=== PATIENT | female | born 1980 | race Caucasian/White ===

== ENCOUNTER 2025-01-16 06:17 | Day surgery (SDC) | payer OTHER ==
[2025-01-13 15:34] LABS: Absolute Basophils 0.1 K/uL (0-0.5); Absolute Eosinophils 0.1 K/uL (0-0.5); Absolute Lymphocytes (CBC) 1.5 K/uL (0.7-4.9); Absolute Monocytes 0.6 K/uL (0.1-1.3); Absolute Neutrophil 5.6 K/uL (1.8-8.0); Basophils % 0.9 % (0-1.3); Eosinophils % 1.8 % (0-4.4); Hematocrit 38.9 % (36.0-45.0); Hemoglobin 13.1 g/dL (12.0-15.0); Lymphocytes % 19.5 % (15.3-44.8); MCH 30.2 pg (27.0-35.0); MCHC 33.6 g/dL (32.0-36.0); MCV 89.6 fL (80-100); MPV 7.8 fL (7.6-11.3); Neutrophils % 70.8 % (41.7-73.7); Platelets 291 thou/uL (152-406); RBC Red Blood Cell Count 4.34 M/uL (3.86-4.86); Red Cell Distribution Width 14.4 % (12.1-15.2)
[2025-01-13 15:35] LABS: Specific Gravity 1.014 (1.005-1.030); Sqamous Epithelial <5 /HPF (None Seen); Urine Bacteria None Seen /HPF (<20); Urine Bilirubin NEGATIVE (Negative); Urine Blood Negative (Negative); Urine Clarity Clear (Clear); Urine Color Light-Yellow (Yellow); Urine Crystals Unidentified Few /HPF (None Seen); Urine Glucose NEGATIVE (Negative); Urine Ketones NEGATIVE (Negative); Urine Micro Reflex YN NO BILL MICROSCOPIC; Urine Mucus Slight /HPF (None Seen); Urine Nitrite NEGATIVE (Negative); Urine Protein NEGATIVE (Negative); Urine RBC <5 /HPF (None Seen); Urine Urobilinogen Normal (Normal); Urine WBC <5 /HPF (<5)
[2025-01-16] MEDS: SCOPOLAMINE HYDROBROMIDE PATCH TD ONE (06:35)
[2025-01-16] MEDS ORDERED: ONDANSETRON 4 MG/2 ML VIAL ONE (06:41)
[2025-01-16] MEDS ORDERED: dexAMETHasone 10 MG/ML VIAL ONE (06:41)
[2025-01-16] MEDS ORDERED: ROCURONIUM 50 MG/5 ML VIAL IV ONE (06:41)
[2025-01-16] MEDS ORDERED: LIDOCAINE 1% MPF 5 ML VIAL ONE (06:41)
[2025-01-16] MEDS ORDERED: FENTANYL CITR 250 MCG/5 ML ONE (06:42)
[2025-01-16] MEDS ORDERED: propofoL 200 MG/20 ML VIAL IV ONE (06:42)
[2025-01-16] MEDS ORDERED: MIDAZOLAM HCL 2 MG/2 ML INJ ONE (06:42)
[2025-01-16] MEDS ORDERED: KETAMINE HCL IN 0.9 % NACL 50 MG/5 ML SYRINGE IV ONE (06:42)
[2025-01-16] MEDS: Ringers Lactate 1,000 ML IV ONE ×2 (07:10→09:30)
[2025-01-16] MEDS: CEFAZOLIN SODIUM 2 GM/VIAL ONE (07:35)
[2025-01-16] MEDS ORDERED: GLYCOPYRROLATE 0.2 MG/ML SYR ONE (07:46)
[2025-01-16] MEDS: BUPIVACAINE 0.25% PF 30 ML VIAL ONE (07:51)
[2025-01-16] MEDS ORDERED: KETOROLAC 30 MG/ML INJ ONE (09:31)
[2025-01-16] MEDS ORDERED: Mastisol Adhesive Liq ONE (09:49)
[2025-01-16] MEDS: HYDROCODONE/APAP 5/325 MG TAB ONE (11:27)
[2025-01-16 12:20] VITALS: BP 122/75; TEMP 97.7; O2SAT 99
--- NOTE | 2025-01-16 20:24 | OP ---
Date of Procedure: 01/16/2025 Surgeon: Denise Villalta MD Senior Net Engineer: Simran Bishop. Preoperative Diagnoses: Menorrhagia (AUB-L), fibroids, pelvic masses, pelvic pain and dyspareunia. Postoperative Diagnoses: Menorrhagia (AUB-L), fibroids, pelvic masses, pelvic pain and dyspareunia. Stage IV endometriosis, fibroids, deep infiltrating endometriosis of the anterior cul-de-sac which i s extensive along the bladder pillars, left uterosacral ligament, left lateral wall with retroperiton eal fibrosis, left tube and left anterior broad ligament. Procedures Performed: 1. Total laparoscopic hysterectomy, bilateral salpingectomy, left oophorectomy. 2. Extensive endometriosis excision including the anterior cul-de-sac, bilateral anterior broad ligam ents, the uterosacral ligaments and the tubal and ovarian . 3. Left ureterolysis. 4. Right ovariopexy. Ebl: 50. Urine Output: 100. Anesthesia: General endotracheal. Specimens: Uterus, bilateral tubes, endometriosis from the anterior cul-de-sac, anterior broad ligam ent all included 1 specimen and rest of the endometriosis in the posterior wall and the uterosacral l igaments were all included with the uterine specimen with the serosa of the uterus. The left tube and ovary were attached to the uterine specimen. The fibroid from the right posterior aspect of the uterus which was pedunculated was submitted separately, but in the same spec imen container. Findings: Enlarged fibroid uterus with large anterior fibroid and then a smaller, but significant si ze posterior right lateral fibroid that was pedunculated, then the endometriosis of the anterior cul- de-sac along the both bladder pillars, right greater than left, deep infiltrating implants were prese nt and also deep infiltrating implants on the anterior broad ligament. Supervision implants were pre sent on the left bladder pillar and right anterior broad ligament and deep endometriosis on the tube and mesosalpinx on the left side and most likely endometrium of the left ovary with scar tissue scarr ing into the posterior broad ligament. The right ovary had a superficial tissue that was brownish in discoloration. However, no implants were noted and therefore this was preserved and ovariopexy was performed. The cuff was closed with the help of 0 PDS sutures x5. 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 Transvaginal ultrasound was performed for fibroids and a suspected pelvic mass was noted. There was a 4.8 cm anterior subserosal and then 5.3 cm posterior fibroid, most likely the pedunculate d one. Endometrium was thickened and there was a 2.5 cm simple right ovarian cyst. Endometrium was thickened and therefore endometrial sampling was performed. No atypia or malignancy leiomyosarcoma w ere noted. So, discussed about different options of medical and surgical treatment after the IUD was removed. NovaSure ablation with removal of tubes and endometriosis excision likely myomectomy was 1 option and then medical treatment with with hysterectomy, bilateral salpingectomy, possib le morcellation, possible removal of ovary if seen and possible endometriosis excision if found. All these were discussed with the patient and she was consented. She was re-consented in the preoperati ve area today and brought to the OR. Description Of Procedure: She was placed in a supine fashion on the operating table, general anesthe boo was given. She was placed in a dorsal lithotomy position. The patient was grounded. SCDs were started. She was prepped with Betadine, vulva vagina and perineal area and abdomen with ChloraPrep. She was draped in a sterile fashion. A time-out was done and procedure was started. Arms were tucked by the side positioning was checked. Speculum was placed to expose the cervix. Ant erior lip grasped with 2 Allis clamps, dilated to 16-[place] and a large cup uterine manipulator was i nserted and fixed in place after placing the Wynne and attaching it to gravity bag. This area was dr carr. A 1 cm supraumbilical incision was made with a scalpel after injecting 0.25% Marcaine at all skin inc ision sites. Fascia was incised with a knife sharply, tagged with 0 Vicryl sutures. Peritoneum ente red sharply. Wei introduced and after adequate insufflation, patient was placed in Trendelenburg. Two right and left lateral 5 ports were placed in a suprapubic left upper quadrant, Cart er-Jarvis needle, Monocryl, retraction all of the epiploica of the sigmoid was also used during the procedure. Endometriosis excision anterior cul-de-sac had significant endometriosis that was deep infiltrating. So I picked up the endometriosis immediately lateral to the left bladder pillar, dissected the vagin al wall in the area between the bladder and the uterus. Once the peritoneal incision was made in a c ircumferential fashion around all the endometriotic implants with the LigaSure. Then, dissection was performed to separate this from the underlying structures which included the detrusor muscle. There was very superficial laceration of the muscle while I was excising the endometriosis which was infil trating through the fat onto the detrusor muscle. Once this was taken down in the specific central a nterior cul-de-sac area, the rest of the peritoneum was picked up and dissected until normal fat was seen and this entire specimen was removed en bloc including the right bladder pallor endometriosis. Supervision endometriosis was seen in the left bladder pillar and right anterior cul-de-sac. These 2 were also excised and included in the specimen and then the left anterior broad ligament had signifi cant endometriosis as well and I was able to take down this and included the large en block specimen. There is tubal endometriosis and there was significant scar on the left lateral wall to the IP ligame nt as well. So, the broad ligament was opened above the round ligament, which is the mesosalpinx and dissected the specimen. The endometriosis was dissected medially towards the specimen. I decided t o remove the ovary as this had significant endometriosis on the surface as well as the potential endo metrioma. There was scar to the posterior broad ligament as well as the utero-ovarian ligament. The IP ligament was isolated by taking the peritoneum after taking the bowel down from the scar in th is area. Then, peritoneal incision was extended parallel to the IP and medially the ureter and IP we re once the ureter was identified, the ureter was then protected and the IP ligament was is olated. The IP ligament was cauterized and cut with the LigaSure and dissection were performed for the ureter olysis. The left ureterolysis, the ureter was identified at the level of the pelvic brim, the medial aspect o f the peritoneum. Laterally identified the ureter right inferior and medial to the IP ligament. The n, this was dissected from the medial leaf of the broad ligament sharply by using the LigaSure. Then , dissection was carried inferiorly all along the pelvic ureter, it from the internal azeb c and the uterine vessels all the way down to the ureteric tunnel. The ureter here was scarred to th e left uterosacral ligament which also had endometriosis so the endometrial scar was left attached to the peritoneum and the ureter was dissected laterally, preserving its vasculature as well as its att achment at the level of the ureteric tunnel. Once the ureter was completely dissected from the medial leaf of the broad ligament, then the uretero lysis was completed. Excision of the endometriosis here at the level of the uterosacral ligament was done and the specimen was to be included with the uterine specimen. The broad ligament was taken down on the left side whatever was remaining after all the dissection of the anterior and posterior aspects and then making sure that the endometriosis was included the left uterosacral, the vessels were isolated. The uterine vessel was traced all the way to the internal i liac and medially and laterally dissection was performed isolated. Then, the uterine artery and vein were taken down with the help of the LigaSure and the cardinal ligaments were taken down on the side as well with bipolar and monopolar. The bladder was dissected inferiorly to expose the anterior vag inal wall. Then posterior peritoneum was taken across the posterior cuff of the uterine manipulator to create the area for the colpotomy. I went over to the left side and the mesosalpinx was taken down with the help of LigaSure. Utero-ova cal ligament was also taken down. Then, the round ligament was taken down. Then, I went over to th e anterior broad ligament taken down all the way attached to the anterior cul-de-sac dissection. Posteriorly, the peritoneum was taken down to the uterosacral then vessels were isolated after taking down rest of the broad ligament. Then, the vessels were taken down across at the level of the inter nal os both uterine vessels and then the broad ligament was taken down. Circumferential colpotomy wa s performed with a monopolar hook blade. Specimen detached and the posterior right pedunculated fib roid was detached using the LigaSure, so the specimen could be retrieved in a fashion without morcell ation. Vaginally, the cervix was grasped with an Allis clamp and the uterine specimen was retrieved along wi th the tubes and left ovary attached. Then, the fibroid that was detached was also removed with the help of an Allis clamp. Vaginal occluder was placed. The vaginal cuff was closed with the help of 0 PDS 2 simple angle sutur es and 3 [id number]. Full-thickness closure was done and excellent support. Aeration suction was performed. No evidence of electrical, mechanical, or thermal injury to the uret ers. Right ovariopexy 3-0 Monocryl was used to attach the ovary to the base of the right round ligament re mnant and once this was done, extracorporeal knot-tying was done. This was secure and there was good vascular supply to the ovary. The pelvic cavity was completely irrigated and suction and once the a ppendix was also normal, the gallbladder liver unremarkable. Rest of the peritoneum without any bloo d. All the trocars were removed under direct visualization. The gas was desufflated. Fascia at the umbilicus closed with the tag 0 Vicryl sutures tied to each other. Simple 0 Vicryl suture at the le keesha of the fascial incision at the suprapubic site. All skin incisions closed with interrupted 4-0 M onocryl. Vaginal occluder and Wynne were removed. Instrument, needle, and sponge counts were done a nd were correct at the end of the case. The patient tolerated the procedure well. She was recovered from anesthesia and taken to PACU in stable condition and her was debriefed. She will follow up in 1 week and 4 weeks. MARLEY/ABIDA Voice ID: [id number] Report ID: [id number]
== END 2025-01-16 12:53 | disposition home or self-care (01) ==
LOC: OR 06:17
PROVIDERS: ATTEND Obstetrics & Gynecology
PROC: 0UT74ZZ Resection of Bilateral Fallopian Tubes, Percutaneous Endoscopic Approach (ICD-10-PCS; 2025-01-16)
PROC: 0UT14ZZ Resection of Left Ovary, Percutaneous Endoscopic Approach (ICD-10-PCS; 2025-01-16)
PROC: 0UB44ZZ Excision of Uterine Supporting Structure, Percutaneous Endoscopic Approach (ICD-10-PCS; 2025-01-16)
PROC: 0UBF4ZZ Excision of Cul-de-sac, Percutaneous Endoscopic Approach (ICD-10-PCS; 2025-01-16)
PROC: 0UB64ZZ Excision of Left Fallopian Tube, Percutaneous Endoscopic Approach (ICD-10-PCS; 2025-01-16)
PROC: 0UB14ZZ Excision of Left Ovary, Percutaneous Endoscopic Approach (ICD-10-PCS; 2025-01-16)
PROC: 0TN74ZZ Release Left Ureter, Percutaneous Endoscopic Approach (ICD-10-PCS; 2025-01-16)
PROC: 0UQ04ZZ Repair Right Ovary, Percutaneous Endoscopic Approach (ICD-10-PCS; 2025-01-16)
PROC: 0UT94ZZ Resection of Uterus, Percutaneous Endoscopic Approach (ICD-10-PCS; principal; 2025-01-16 07:00)
DX: N92.0 Excessive and frequent menstruation with regular cycle (principal); R10.2 Pelvic and perineal pain; N94.10 Unspecified dyspareunia; N80.A0 Endometriosis of bladder, unspecified depth; N80.319 Endometriosis of the anterior cul-de-sac, unspecified depth; N80.102 Endometriosis of left ovary, unspecified depth; N80.202 Endometriosis of left fallopian tube, unspecified depth; D25.9 Leiomyoma of uterus, unspecified; N80.03 Adenomyosis of the uterus
CPT/HCPCS: 58571; 58662; 50949; 58999; 85025; 81001; 36415; 86900; 86850; 81025; 86901; 88305; 88307; J3490; A4314; J2704; J2003; J2250; J3010; J1100; J2405; J7120 ×2